=== PATIENT | female | born 1985 | race Caucasian/White ===

== ENCOUNTER → 2023-08-06 | Outpatient (CLI) | payer OTHER | END | disposition home or self-care (01) | LOC: LAB 14:08 → LAB SHORT 14:08 | DX: O09.893 Supervision of other high risk pregnancies, third trimester (principal) | CPT/HCPCS: 87081; 87150 ==

== ENCOUNTER 2023-08-20 05:06 | Inpatient (IN) | payer OTHER ==
[2023-08-20] VITALS (21 sets, daily range): BP systolic 108–145; BP diastolic 56–90
[~2023-08-20] VITALS: Ht 162.6 cm; Wt 91.8 kg
[2023-08-20] MEDS ORDERED: BUPR100 PO (06:12)
[2023-08-20] MEDS ORDERED: SERT50 PO (06:12)
[2023-08-20] MEDS ORDERED: PRENATAL TABLE1 EAC2 PO (06:12)
[2023-08-20] MEDS ORDERED: UNISOM PM PAIN1 EACH PO (06:12)
[2023-08-20 06:20] LABS: Albumin, Blood 2.2 g/dL (3.4-5.0); Albumin/Globulin Ratio 0.5 (0.8-1.8); Bilirubin, Total 0.2 mg/dL (0.1-1.0); Bun/Creatinine Ratio 11.7 (12.0-20.0); Calcium, Blood 8.7 mg/dL (8.5-10.1); Creatinine, Blood 0.85 mg/dL (0.40-1.00); Globulin, Blood 4.3 g/dL (2.2-4.0); Potassium, Blood 3.8 mmol/L (3.5-5.5); Total Protein, Blood 6.5 g/dL (6.4-8.2)
[2023-08-20 07:09] LABS: BASOPHILS ABSOLUTE AUTO 0.06 K/mm3 (0.00-0.23); BASOPHILS PERCENT AUTO 1 % (0-2); EOSINOPHILS PERCENT AUTO 2 % (0-6); Hematocrit 34.7 % (33.0-51.0); Hemoglobin 10.6 g/dL (11.5-16.0); IMMATURE GRAN ABSOLUTE AUTO 0.08 K/mm3 (0.00-0.10); IMMATURE GRAN PERCENT AUTO 2 % (0-1); LYMPHOCYTES ABSOLUTE AUTO 1.27 K/mm3 (0.84-5.20); LYMPHOCYTES PERCENT AUTO 26 % (21-46); MONOCYTES ABSOLUTE AUTO 0.46 K/mm3 (0.16-1.47); MONOCYTES PERCENT AUTO 9 % (4-13); Mean Corpuscular HGB 24.1 pg (26.0-34.0); Mean Corpuscular HGB Conc 30.5 g/dL (31.5-36.5); Mean Corpuscular Volume 79 fL (80-100); NEUTROPHILS ABSOLUTE AUTO 3.02 K/mm3 (1.96-9.15); NEUTROPHILS PERCENT AUTO 61 % (41-73); NRBC ABSOLUTE 0.03 K/mm3 (0.00-0.02); NRBC Auto 0.6 /100 WBC (0.0-0.2); Platelet Count 153 K/mm3 (150-400); RDW Coefficient Variation 15.2 % (11.7-14.2); White Blood Cell Count 4.99 K/mm3 (4.00-11.30)
--- NOTE | 2023-08-20 09:29 | NUR ---
08/20/23 0929 Cecile Bañuelos VIGOROUS FEMALE BORN AT 0917 WITH SPONTANEOUS CRY. CORD BLOOD GIVEN TO RYAN QUICK. NO GASES PER DR HERNANDEZ. WEIGHT 8-15. APGARS 9/9.
--- NOTE | 2023-08-20 14:45 | NUR ---
REPORT TO [facility] QUICK
[2023-08-21 04:11] VITALS: BP 119/57
[2023-08-21 05:57] LABS: BASOPHILS ABSOLUTE AUTO 0.04 K/mm3 (0.00-0.23); BASOPHILS PERCENT AUTO 1 % (0-2); EOSINOPHILS ABSOLUTE AUTO 0.08 K/mm3 (0.00-0.68); EOSINOPHILS PERCENT AUTO 1 % (0-6); Hematocrit 26.2 % (33.0-51.0); Hemoglobin 7.9 g/dL (11.5-16.0); IMMATURE GRAN ABSOLUTE AUTO 0.05 K/mm3 (0.00-0.10); IMMATURE GRAN PERCENT AUTO 1 % (0-1); LYMPHOCYTES ABSOLUTE AUTO 0.87 K/mm3 (0.84-5.20); LYMPHOCYTES PERCENT AUTO 13 % (21-46); MONOCYTES ABSOLUTE AUTO 0.67 K/mm3 (0.16-1.47); MONOCYTES PERCENT AUTO 10 % (4-13); Mean Corpuscular HGB 24.1 pg (26.0-34.0); Mean Corpuscular HGB Conc 30.2 g/dL (31.5-36.5); Mean Corpuscular Volume 80 fL (80-100); NEUTROPHILS ABSOLUTE AUTO 5.21 K/mm3 (1.96-9.15); NEUTROPHILS PERCENT AUTO 75 % (41-73); NRBC ABSOLUTE 0.02 K/mm3 (0.00-0.02); NRBC Auto 0.3 /100 WBC (0.0-0.2); Platelet Count 119 K/mm3 (150-400); RDW Coefficient Variation 15.5 % (11.7-14.2); RDW Standard Deviation 44.8 fL (35.1-46.3); Red Blood Cell Count 3.28 M/mm3 (3.80-5.20); White Blood Cell Count 6.92 K/mm3 (4.00-11.30)
[2023-08-21 07:28] VITALS: BP 119/58
[2023-08-21 11:43] VITALS: BP 126/68
[2023-08-21 16:34] VITALS: BP 121/75
[2023-08-21 19:22] VITALS: BP 130/74
[2023-08-22 00:31] VITALS: BP 103/58
[2023-08-22 05:10] VITALS: BP 132/75
[2023-08-22 07:49] VITALS: BP 118/64
--- NOTE | 2023-08-22 08:28 | NUR ---
PT DECLINED IRON INFUSION DUE TO FEELING ILL YESTERDAY AFTER RECEIVING IT. DR HERNANDEZ NOTIFIED AND OK WITH PT REFUSING MEDICATION. RECOMMENDED PT TAKING IRON SUPPLEMENTS AND INCREASE INTAKE OF IRON RICH FOODS. PT AGREEABLE.
[2023-08-22 12:10] VITALS: BP 123/74
[2023-08-22 15:59] VITALS: BP 123/72
[2023-08-22] MEDS ORDERED: OXAYDO5 M1 PO (18:28)
== END 2023-08-22 19:00 | disposition home or self-care (01) | DRG 787 ==
LOC: BC 05:18
PROVIDERS: ADMIT Obstetrics & Gynecology
PROC: 10D00Z1 Extraction of Products of Conception, Low, Open Approach (ICD-10-PCS; principal; 2023-08-20 07:30)
DX: O34.211 Maternal care for low transverse scar from previous cesarean delivery (principal); D62 Acute posthemorrhagic anemia; Z3A.38 38 weeks gestation of pregnancy; Z37.0 Single live birth; O24.424 Gestational diabetes mellitus in childbirth, insulin controlled; O99.344 Other mental disorders complicating childbirth; F41.8 Other specified anxiety disorders; O99.62 Diseases of the digestive system complicating childbirth; K21.9 Gastro-esophageal reflux disease without esophagitis; G47.00 Insomnia, unspecified; M19.042 Primary osteoarthritis, left hand; M19.041 Primary osteoarthritis, right hand; O99.892 Other specified diseases and conditions complicating childbirth; O90.81 Anemia of the puerperium; Z88.2 Allergy status to sulfonamides; Z87.891 Personal history of nicotine dependence
CPT/HCPCS: 36415; 80053; 82947; 85025; 86850; 86900; 86901; 86922; A9270; J0690; J1885; J2210; J2405; J2590; J2916; J3010; J7120

== ENCOUNTER 2023-08-25 04:58 | Emergency (ER) | payer OTHER ==
[~2023-08-25] VITALS: Ht 162.6 cm; Wt 90.7 kg
[~2023-08-25 04:58] MED LIST: BUPR100 PO; OXAYDO5 M1 PO; PRENATAL TABLE1 EAC2 PO; SERT50 PO; UNISOM PM PAIN1 EACH PO
[2023-08-25 05:06] VITALS: BP 158/87
[2023-08-25] MEDS ORDERED: IBUP600 (05:09)
[2023-08-25] MEDS ORDERED: IRON18 MG (05:10)
== END 2023-08-25 05:29 | disposition home or self-care (01) ==
LOC: ER 04:58
DX: O99.63 Diseases of the digestive system complicating the puerperium (principal); K12.2 Cellulitis and abscess of mouth; Z79.891 Long term (current) use of opiate analgesic; Z79.899 Other long term (current) drug therapy
CPT/HCPCS: 99282; J1100